=== PATIENT | female | born 1970 | race American Indian/Alaskan Native ===

== ENCOUNTER 2018-05-03 14:11 | Outpatient (CLI) | payer OTHER ==
--- NOTE | 2018-05-04 08:21 | Mammography Report ---
Screening mammogram: Routine views demonstrates mild architectural distortion in the inferior left breast consistent with surgical location. The overall findings are generally heterogeneously dense and otherwise symmetric. There is a focal asymmetry identified in the superior right breast seen in the lateral projection. No correlation noted on CC projection. CAD used. Impression: Right asymmetry. Recommendation: Prior exams are being requested for comparison. Final recommendation will be made at that time. BI-RADS CATEGORY: 0 = Needs additional imaging evaluation ACR BI-RADS MAMMOGRAPHIC CODES: 0 = Needs additional imaging evaluation; 1 = Negative; 2 = Benign; 3 = Probably benign; 4 = Suspicious; 5 = Malignant; 6 = Known biopsy-proven malignancy COMMENT: 1. Dense breast tissue, i.e., adenosis, fibrocystic changes, etc., may obscure an underlying neoplasm. 2. Approximately 10% of cancers are not detected with mammography. 3. A negative mammography report should not delay biopsy if a clinically suspicious mass is present.
== END 2018-05-03 14:12 | disposition home or self-care (01) ==
LOC: MAMMO 14:11
DX: Z12.31 Encounter for screening mammogram for malignant neoplasm of breast (principal)
CPT/HCPCS: 77067